=== PATIENT | female | born 1975 | race Two or more races ===

== ENCOUNTER 2021-06-22 15:48 | Emergency (ER) | payer BC ==
[~2021-06-22] VITALS: Ht 152.4 cm; Wt 47.6 kg
--- NOTE | 2021-06-22 16:05 | NUR ---
DR. MINOR SPEAKING WITH DR. LOYA.
[2021-06-22] MEDS ORDERED: IV NS 0.9% 1,000 ML BAG IV ONE (16:30)
[2021-06-22 16:36] LABS: BASOPHILS % (AUTO) 0.3 % (0.0-2.0); EOSINOPHILS % (AUTO) 0.1 % (0.0-6.0); HEMATOCRIT 53 % (33-45); HEMOGLOBIN 17.5 g/dL (11.5-14.8); LYMPHOCYTES # (AUTO) 0.8 K/uL (0.8-4.8); LYMPHOCYTES % (AUTO) 7.1 % (20.0-44.0); MEAN CORPUSCULAR HGB CONC 33 g/dl (31.0-36.0); MEAN CORPUSCULAR VOLUME 89 fL (82-100); MONOCYTES # (AUTO) 0.1 K/uL (0.1-1.30); MONOCYTES % (AUTO) 0.7 % (2.0-12.0); NEUTROPHILS # (AUTO) 9.8 K/uL (1.8-8.9); NEUTROPHILS % (AUTO) 91.8 % (43.0-81.0); PLATELET COUNT (AUTO) 226 K/uL (150-450); RED BLOOD CELL COUNT(AUTO) 5.94 MIL/uL (4.0-5.2); WHITE BLOOD COUNT (AUTO) 10.7 K/uL (4.3-11.0)
--- NOTE | 2021-06-22 16:37 | NUR ---
[id number] C/O DIZZINESS, GENERALIZED ITCHING WHILE GETTING IV IRON INFUSION. PER EMS HYPOTENSIVE AT THE FIELD. PT AAOX4, RR EVEN & UNLABORED. DENIES CP, SOB, N/V AT THIS TIME. PT SEEN & EVAL'D BY DR. LOYA. WILL CONT TO MONITOR.
[2021-06-22 16:45] LABS: CALCIUM, SERUM 8.2 mg/dL (8.5-10.1); CREATININE 0.6 mg/dL (0.6-1.3); POTASSIUM 3.7 mmol/L (3.5-5.1)
[2021-06-22] MEDS ORDERED: IOHEXOL-350 100 ML VIAL IV ONE (22:32)
[2021-06-22] MEDS ORDERED: CT SWABBABLE VALVE TRANS SET 1 EA INFUS.SET MC ONE (22:33)
[2021-06-22] MEDS ORDERED: IV NS 0.9% 250 ML IV ONE (22:33)
--- NOTE | 2021-06-22 23:50 | NUR ---
urine sent to lab
--- NOTE | 2021-06-22 23:53 | NUR ---
taken to ct
--- NOTE | 2021-06-22 23:54 | NUR ---
returned from ct
[2021-06-22 23:57] LABS: BILIRUBIN,URINE Negative (NEGATIVE); COLOR,URINE YELLOW (YELLOW); LEUKOCYTE ESTERASE ,URINE Negative (NEGATIVE); NITRITE, URINE Negative (NEGATIVE); PH,URINE 5.5 (5.0-8.0); PROTEIN,URINE Negative (NEGATIVE); UGLUCOSE Negative (NEGATIVE); UROBILINOGEN,URINE 0.2 EU/dL (0.2)
[2021-06-22 23:58] LABS: BACTERIA,URINE Rare /HPF (None Seen); SQUAMOUS EPITHELIAL CELL,UR Few /HPF (None Seen); WBC,URINE NONE SEEN /HPF (0-3)
[2021-06-23] MEDS ORDERED: EPIN0.3P3 IJ (00:08)
[2021-06-23] MEDS ORDERED: PRED20TA PO (00:08)
[2021-06-23] MEDS ORDERED: FAMO-131 PO (00:14)
--- NOTE | 2021-06-23 00:43 | NUR ---
Patient discharged to home in stable condition. Written and verbal after care instructions given. Patient verbalizes understanding of instruction. IV removed. Catheter intact and site benign. Pressure and 4x4 applied to site. No bleeding noted. Pt ambulatory with a steady gait
[2021-06-23 00:57] VITALS: BP 95/60
== END 2021-06-23 00:43 | disposition home or self-care (01) ==
LOC: ER 15:55
DX: T78.2XXA Anaphylactic shock, unspecified, initial encounter (principal); R07.89 Other chest pain; N13.30 Unspecified hydronephrosis; R31.29 Other microscopic hematuria; K29.70 Gastritis, unspecified, without bleeding; D64.9 Anemia, unspecified; Z88.0 Allergy status to penicillin; Z88.8 Allergy status to other drugs, medicaments and biological substances; Z79.899 Other long term (current) drug therapy
CPT/HCPCS: 36415; 71045; 71275; 74176; 80048; 81001; 83880; 84484; 85025; 85378; 93005; 96360; 99285; J7030; J7050; Q9967